=== PATIENT | male | born 1995 | race Caucasian/White ===

== ENCOUNTER → 2024-07-31 | Outpatient (CLI) | payer SELFPAY | LOC: M OUTALCOH 08:13 | PROVIDERS: ATTEND Psychiatry & Neurology Psychiatry | DX: F10.10 Alcohol abuse, uncomplicated (principal) ==

== ENCOUNTER 2024-08-21 12:50 | Outpatient (RCR) | payer SELFPAY | END 2024-08-24 | LOC: M OUTALCOH 12:50 | PROVIDERS: ATTEND Psychiatry & Neurology Psychiatry | DX: F10.10 Alcohol abuse, uncomplicated (principal) ==

== ENCOUNTER 2024-09-22 16:00 | Outpatient (RCR) | payer SELFPAY | END 2024-09-23 | LOC: M OUTALCOH 16:00 | PROVIDERS: ATTEND Psychiatry & Neurology Psychiatry | DX: F10.10 Alcohol abuse, uncomplicated (principal) ==